=== PATIENT | male | born 1955 | race Caucasian/White ===

== ENCOUNTER 2021-10-06 06:25 | Day surgery (SDC) | payer OTHER ==
[2021-09-30 15:01] LABS: Absolute Lymphocytes (CBC) 2.1 K/uL (0.7-4.9); Hematocrit 47.9 % (39.6-49.0); Lymphocytes % 24.3 % (15.3-44.8); MPV 7.6 fL (7.6-11.3); RBC Red Blood Cell Count 5.43 M/uL (4.33-5.43)
--- NOTE | 2021-09-30 15:17 | RAD REPORT ---
EXAM DESCRIPTION: Remigio Sigala (2 Views)09/30/2021 3:00 pm CLINICAL HISTORY: Preop for hernia repair COMPARISON: 2016 FINDINGS: The lungs appear clear of acute infiltrate. The heart is normal size IMPRESSION: No acute abnormalities displayed
[2021-09-30 15:21] LABS: Potassium 4.6 mmol/L (3.5-5.1)
[2021-10-06] MEDS ORDERED: CEFAZOLIN/NS 1gm 1 GM/50 ML BAG ONE (06:42)
[2021-10-06] MEDS ORDERED: NA CHLORIDE 0.9% 1,000 ML ONE ×2 (06:42→09:56)
[2021-10-06] MEDS ORDERED: BUPIVACAINE 0.5% Inj,MDV 50 mL VIAL ONE (07:08)
[2021-10-06] MEDS ORDERED: propofoL 200 MG/20 ML VIAL IV ONE (07:14)
[2021-10-06] MEDS ORDERED: FENTANYL CITR 100 MCG/2 ML ONE ×2 (07:15→07:56)
[2021-10-06] MEDS ORDERED: LIDOCAINE 2% MPF 5 ML VIAL ONE (07:16)
[2021-10-06] MEDS ORDERED: MIDAZOLAM HCL 2 MG/2 ML INJ ONE (07:16)
[2021-10-06] MEDS ORDERED: ROCURONIUM 50 MG/5 ML VIAL IV ONE (07:19)
[2021-10-06] MEDS ORDERED: ONDANSETRON 4 MG/2 ML VIAL ONE (07:19)
[2021-10-06] MEDS ORDERED: GLYCOPYRROLATE 0.2 MG/ML SYR ONE (07:20)
[2021-10-06] MEDS ORDERED: NEOSTIGMINE 1 MG/ML -5 ML ONE (07:20)
[2021-10-06] MEDS ORDERED: SUCCINYLCHOLINE 20 MG/ML (10 ML) IV ONE (07:30)
[2021-10-06] MEDS: HYDROMORPHONE HCL 1 MG/ML INJ ONE ×2 (09:59→10:04)
[2021-10-06 10:12] VITALS: O2SAT 95
[2021-10-06] MEDS ORDERED: TAMSULOSIN 0.4 MG SR CAP ONE (10:57)
[2021-10-06] MEDS ORDERED: HYDROCODONE/APAP 5/325 MG TAB ONE (10:57)
[2021-10-06 11:15] VITALS: BP 153/73; TEMP 97.4
--- NOTE | 2021-10-26 16:17 | DS ---
Date of Discharge: 10/06/2021 Diagnosis: Incarcerated umbilical and inguinal hernias. Procedure: Open repair of incarcerated inguinal right side, also left-sided inguinal with mesh and t hen repair of also of incarcerated umbilical hernia. Disposition: Home. Activity: As tolerated. No heavy lifting. Plan: Follow up in my office in 1 week. Call for appointment at [phone]. Keep area dry for 48 trudy rs, then may shower. Medications: See orders. PATTI/ALIE Voice ID: [id number] Report ID: [id number]
--- NOTE | 2021-10-27 13:00 | OP ---
Date of Procedure: 10/26/2021 Surgeon: Narayan Lane MD Can Carrier: Connie Mancilla. Preoperative Diagnosis: Incarcerated bilateral inguinal and umbilical hernia. Postoperative Diagnosis: Incarcerated bilateral inguinal and umbilical hernia. Procedures: 1.Open repair of incarcerated right inguinal hernia with mesh. 2.Open repair of incarcerated left inguinal hernia with mesh. 3.Open repair of incarcerated umbilical hernia. Anesthesia: General plus local. Complications: None. Implant: Mesh, plug and sheath on the right and left side. Indication: This is the case of a male, who comes to us with tender bilateral inguinal hernias incar cerated and also umbilical hernia. The benefits, alternatives, and risks were fully explained of lap aroscopic versus open repair of inguinal hernia with mesh, which include, but not limited to infectio n, bleeding, damage to adjacent structures, anesthesia complication, chronic pain, numbness, recurren ce, NH, and even . He also understands this may not relieve any symptoms. He might need more t dong one surgical intervention. He was explained also the plan to use mesh over the inguinal regions at least. Pros and cons of mesh placement were discussed with the patient. All the questions were a nswered to his satisfaction. He did consent for the use of mesh. Procedure In Detail: The patient was brought to the operating room, placed in supine position. Anes thesia was done without complication. A time-out was called. Anesthesia was induced without complic ation. Our initial approach was done laparoscopically with an incision in the infraumbilical region and the anterior rectus sheath to trying to see we can access to the anterior rectus sheath, but the area is so large and some complex that we cannot achieve good visualization and good dissection of th e area to continue laparoscopically. Apparently, in this case due to these obvious findings, we turn ed into the open case, which I believe at this moment will be safer in this case due to the incarcera tion of tissue there. At that moment, after obtaining instrument count correct, we proceeded to make a right inguinal incision. Incision was carried down to Bharati fascia, which was opened under direc t vision. Internal oblique aponeurosis was identified and opened in direction of the fibers to conne ct the superficial inguinal ring. After that, ilioinguinal nerve and iliohypogastric nerve were iden tified, protected behind external oblique aponeurosis. The spermatic cord was then closed with a Pen laron making sure the structures were protected at all times. A lipoma of the cord was carefully iden tified and ligated from the cord structures. Small hernia sac was imbricated in the deep inguinal ri ng. The lipoma of the cord was ligated under direct visualization with chromic. Mesh and plug were placed over this deep inguinal ring after the imbrication of the hernia sac was done and secured in p lace with VersaTack. Mesh and sheet were placed in the floor of the canal securing that to the pubic tubercle, shelving edge of inguinal ligament, transversalis fascia, and the tails of the loop around the spermatic cord without strangulation. The area was irrigated, no bleeding. The ilioinguinal ne rve and iliohypogastric nerve were brought back into the working space. The superficial inguinal rin g was then approximated and then the external oblique aponeurosis was approximated making sure the ne rves were not included. The area was irrigated. Bharati fascia was closed with a chromic and the ski n was approximated with abhilash. Sponge count and instrument counts correct. At that moment, we pro ceeded then to go to the opposite side. Once again, incision was made in the inguinal canal. The in cision was carried down to Bharati fascia. External oblique aponeurosis was dissected in the directio n of its fibers to connect to the superficial inguinal ring. Once again, we identified the ilioingui nal nerve and iliohypogastric nerve, protected behind external oblique aponeurosis. A Teresita was pl aced around the spermatic cord. We noticed also once again the same findings with lipoma of the cord getting present. The hernia sac was carefully identified, showed incarceration of the fatty tissue, but reduced. Hernia sac was then imbricated with the help of the Prolene and then also a mesh and p lug were placed in that area and secured in place with VersaTack. The area was irrigated. No bleedi ng. Mesh and sheet were placed on the floor of the canal securing that to the pubic tubercle, shelvi ng edge of inguinal ligament, transversalis fascia and the tails looped around the spermatic cord wit hout strangulation. The area was visualized once again, no bleeding. At that moment, I proceeded to bring the ilioinguinal nerve and iliohypogastric nerve back into the inguinal canal, reconstructed t he superficial inguinal ring and closed the external oblique aponeurosis making sure the nerves were not included. The area was irrigated. Bharati fascia was closed with 3-0 chromic and the skin with s taples. Sponge count and instrument counts correct. At that moment, we went into the umbilical ruba on. We have a previous incision in that area. That incision was also used to help repair the umbili patria region. The umbilical skin was from the umbilical sac. We opened the hernia sac, foun d to have incarcerated omentum. After removing some adhesions from the sac, we were able to best lala luate the omentum and looked viable, so we preserved that and reduced back into the abdominal cavity. Area was irrigated. Then, after that, we removed the hernia sac and cleaned the fascial edges. We noticed this to approximate without resistance and no need for mesh at this moment. So, we proceede d to close the area with #1 sutures. The area was irrigated. The subcutaneous tissue was closed wit h 3-0 chromic and skin approximated. Sponge count and instrument counts correct. The patient tolera pao the procedure well. The patient was sent to recovery in stable condition. PATTI/ALIE Voice ID: [id number] Report ID: [id number]
== END 2021-10-06 13:07 | disposition home or self-care (01) ==
LOC: OR 06:25
PROVIDERS: ATTEND Surgery
PROC: 0YUA0JZ Supplement Bilateral Inguinal Region with Synthetic Substitute, Open Approach (ICD-10-PCS; principal; 2021-10-06 07:30)
PROC: 0WQF0ZZ Repair Abdominal Wall, Open Approach (ICD-10-PCS; 2021-10-06 07:30)
DX: K40.00 Bilateral inguinal hernia, with obstruction, without gangrene, not specified as recurrent (principal); K42.9 Umbilical hernia without obstruction or gangrene; Z20.822 Contact with and (suspected) exposure to COVID-19
CPT/HCPCS: 93005; 85025; 80048; 36415; 82947 ×2; 88302 ×2; 71046; 49507; 49587; U0002; J2704; J0330; J2250; J3010 ×2; J1170; J2710; J0690; J7030 ×2; J2405; 88304

== ENCOUNTER 2021-10-07 14:59 | Emergency (ER) | payer OTHER ==
--- OUTSIDE RECORDS SUMMARY | 2021-10-07 15:03 | XMS REPORT | Continuity of Care Document ---
:1955 Author Organization [facility] t Address [address] [place] [address] Care Team Providers Name Role Phone Pcp, Does Not Have A Primary Care Physician SAULO HASSAN Attending Clinician Unavailable Nurse, Pob Immunization Attending Clinician Unavailable Saulo Hassan DO Attending Clinician Josh Cabrera DO Attending Clinician Doctor Unassigned, Name Attending Clinician Unavailable Larry PEARCE Attending Clinician Unavailable Payers Payer Name Policy Type Policy Number Effective Date Expiration Date [facility] [id number] 2020 [facility] 00:00:00 PPO Problems Condition Condition Condition Status Onset Resolution Last Treating Co mments Source Name Details Category Date Date Treatment Clinician Date S/P ankle S/P ankle Disease Active Uni vers fusion fusion 3-30 ity of 00:00: [address] Wound Wound Disease Active 2016-10 Univers infection infection 1-22 [place] Medical hardware, hardware, Bran ch initial initial encounter encounter 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 infection - ity of 00:00: [address] Chronic Chronic Disease Active 2016-10 Univers osteomyeli osteomyeli - it y of tis of tis of 00:00: [place] ankle and ankle and 00 Medi patria foot, foot, Branch right right Osteomyeli Osteomyeli Disease Active 2016-10 U nivers tis of tis of 1-15 ity of ankle ankle 00:00: [place] 00 Medical Branch Cellulitis Cellulitis Disease Active 2016-10 U nivers 1-14 ity of 00:00: [place] 00 Medical Branch Obesity Obesity Disease Active 2016-10 Univers (BMI (BMI 1-14 ity of 30-39.9) 30-39.9) 00:00: [place] 00 Medical Branch Allergies, Adverse Reactions, Alerts Allergy Allergy Status Severity Reaction(s) Onset Inactive Treating Comm ents Source Name Type Date Date Clinician ADHESIVE Drug Active ITCHING Univers Class 3-22 ity of 00:00: [place] 00 Medical Branch Adhesive Propensi Active Rash Paper Univer s ty to 3-22 tape ok ity of adverse 00:00: [place] reaction 00 Medical s Branch BEE DRUG Active Anaphylaxis 2016-10 Unive rs STING / INGREDI 1-15 ity of VENOM 00:00: [place] 00 Medical Branch Bee Propensi Active Anaphylaxis 2016-10 Uni vers Sting / ty to 1-15 ity of Venom adverse 00:00: [place] reaction 00 Medical s Branch SULFAMET DRUG Active High Swelling 2014-10 Univer s HOXAZOLE INGREDI 0-06 ity of 00:00: [place] 00 Medical Branch Sulfamet Propensi Active Swelling 2014-10 bactrim Uni vers hoxazole ty to 0-06 ity of adverse 00:00: [place] reaction 00 Medical s Branch Social History Social Habit Start Date Stop Date Quantity Comments Source History [facility] o f Alcohol Frequency [facility] [place] [facility] Branch History [facility] University o f Alcohol Std Drinks [place] [facility] History [facility] o f Alcohol Binge [place] [facility] Branch History of tobacco Cigarette Smoker University of use [facility] Exposure to Yes University of SARS-CoV-2 (event) [facility] Alcohol intake 2021-05-10 2021-05-10 Current drinker Unive rsity of 00:00:00 00:00:00 of alcohol [facility] (finding) Branch Cigarettes smoked 2017-08-16 2017-08-16 Univers ity of current (pack per 00:00:00 00:00:00 [facility]) - Reported Branch Cigarette 2017-08-16 2017-08-16 University of pack-years 00:00:00 00:00:00 [facility] Tobacco use and 2017-08-16 2017-08-16 Never used Universit y of exposure 00:00:00 00:00:00 [facility] Tobacco Comment 2017-08-16 2017-08-16 quit 30 years Univer sity of 00:00:00 00:00:00 ago [facility] Alcohol Comment 2017-08-16 2017-08-16 social Universit y of 00:00:00 00:00:00 [facility] Sex [birth year] Universit y of 00:00:00 00:00:00 [facility] Smoking Status Start Date Stop Date Source Former smoker 2017-08-16 00:00:00 2017-[facility] Medications Ordered Filled Start Stop Current Ordering Indication Dosage Frequency Signature Comments Components Source Medication Medication Date Date Medication? Clinician (SIG) Name Name NaCl 0.9% No 1000mL at 999 Uni vers (NS) bolus 05-10-09 mL/hr, ity of infusion 19:30: 21:21 1,000 mL, [place] 1,000 mL 00 :00 IV Medical Piggyback, [place] ONCE, 1 dose, 05/10/21 at 1430, STAT CETIRIZINE 2017-10 Yes Take by Uni vers HCL 1-07 mouth. ity of (CETIRIZINE 18:36: [place] ORAL) [address] [place] [address] CETIRIZINE 2017-10 Yes Take by Uni vers HCL 1-07 mouth. ity of (CETIRIZINE 18:36: [place] ORAL) [address] [place] [address] CETIRIZINE 2017-10 Yes Take by Uni vers HCL 1-07 mouth. ity of (CETIRIZINE 12:36: [place] ORAL) [address] [place] [address] levothyroxi Yes Univer s ne 25 mcg 9-04 ity of tablet 00:00: 00 [facility] levothyroxi Yes Univer s ne 25 mcg 9-04 ity of tablet 00:00: 00 [facility] levothyroxi Yes Univer s ne 25 mcg 9-04 ity of tablet 00:00: 00 [facility] lisinopril- Yes Univer s hydrochloro 2-25 ity of thiazide 00:00: 20-25 mg 00 Medical per tablet Branch lisinopril- Yes Univer s hydrochloro 2-25 ity of thiazide 00:00: 20-25 mg 00 Medical per tablet Branch lisinopril- Yes Univer s hydrochloro 2-25 ity of thiazide 00:00: 20-25 mg 00 Medical per tablet Branch meloxicam Yes Univers 7.5 mg 2-24 ity of tablet 00:00: Medical Branch meloxicam Yes Univers 7.5 mg 2-24 ity of tablet 00:00: [facility] meloxicam Yes Univers 7.5 mg 2-24 [facility]y [facility] 1[facility]50 mg 2-09 [facility] 1-5[facility]50 mg 2-09 ity [facility] Tab [facility] Univers 1-5-50 mg 2-09 ity of Tab 00:00: [facility] Branch methocarbam 2016-10 Yes 500mg Take 1 Uni vers ol 500 mg 1-28 tablet by ity o f tablet 00:00: mouth 3 00 (three) Medical times Branch daily as needed for Pain (scale 4-6) or Pain (scale 7-10) (muscle spasm). methocarbam 2016-10 Yes 500mg Take 1 Uni vers ol 500 mg 1-28 tablet by ity o f tablet 00:00: mouth 3 (three) Medical times Branch daily as needed for Pain (scale 4-6) or Pain (scale 7-10) (muscle spasm). methocarbam 2016-10 Yes 500mg Take 1 Uni vers ol 500 mg 1-28 tablet by ity o f tablet 00:00: mouth 3 00 (three) Medical times Branch daily as needed for Pain (scale 4-6) or Pain (scale 7-10) (muscle spasm). HYDROcodone 2016-10 Yes 1{tbl} Take 1 Un harshal -acetaminop 1-17 tablet by ity of hen 10-325 00:00: mouth [place] mg tablet 00 every 4 Medical (four) Branch hours as needed for Pain (scale 4-6) or Pain (scale 7-10). pantoprazol 2016-10 Yes 40mg Take 1 Univ ers e 40 mg EC 1-17 tablet by ity of tablet 00:00: mouth [place] 00 daily. Medical Branch HYDROcodone 2016-10 Yes 1{tbl} Take 1 Un harshal -acetaminop 1-17 tablet by ity of hen 10-325 00:00: mouth [place] mg tablet 00 every 4 Medical (four) Branch hours as needed for Pain (scale 4-6) or Pain (scale 7-10). pantoprazol 2016-10 Yes 40mg Take 1 Univ ers e 40 mg EC 1-17 tablet by ity of tablet 00:00: mouth [place] 00 daily. Medical Branch HYDROcodone 2016-10 Yes 1{tbl} Take 1 Un harshal -acetaminop 1-17 tablet by ity of hen 10-325 00:00: mouth [place] mg tablet 00 every 4 Medical (four) Branch hours as needed for Pain (scale 4-6) or Pain (scale 7-10). pantoprazol 2016-10 Yes 40mg Take 1 Univ ers e 40 mg EC 1-17 tablet by ity of tablet 00:00: mouth [place] 00 daily. Medical Branch metFORMIN 2016-10 Yes Univers 500 mg 24 1-02 ity of hr tablet 00:00: [facility] metFORMIN 2016-10 Yes Univers 500 mg 24 1-02 ity of hr tablet 00:00: [facility] metFORMIN 2016-10 Yes Univers 500 mg 24 1-02 ity of hr tablet 00:00: [facility] DULoxetine 2016-10 Yes Univers 60 mg 0-26 ity of capsule 00:00: [facility] DULoxetine 2016-10 Yes Univers 60 mg 0-26 ity of capsule 00:00: [facility] DULoxetine 2016-10 Yes Univers 60 mg 0-26 ity of capsule 00:00: [facility] Branch methocarbam 2016-10 Yes Univer s ol 500 mg 0-20 ity of tablet 00:00: [facility] methocarbam 2016-10 Yes Univer s ol 500 mg 0-20 ity of tablet 00:00: [facility] methocarbam 2016-10 Yes Univer s ol 500 mg 0-20 ity of tablet 00:00: Medical Branch gabapentin Yes Univers 600 mg 0-08 ity of tablet 00:00: Medical Branch gabapentin 2016- Yes Univers 600 mg 0-08 ity of tablet 00:00: [place] [facility] gabapentin 2016- Yes Univers 600 mg 0-08 ity of tablet 00:00: [place] [facility] fenofibrate 0 Yes Univer s 145 mg 8-21 ity of tablet 00:00: [place] [facility] fenofibrate 2016- Yes Univer s 145 mg 8-21 ity of tablet 00:00: [place] [facility] fenofibrate Yes Univer s 145 mg 8-21 ity of tablet 00:00: [place] [facility] Branch diphenhydrA 2014-10 Yes 25mg Take 1 Cap Univers MINE 0-06 by mouth ity of (BENADRYL) 00:00: every 6 [place] 25 mg 00 (six) Medical capsule hours as Branch needed for Itching or Allergies. diphenhydrA 2014-10 Yes 25mg Take 1 Cap Univers MINE 0-06 by mouth ity of (BENADRYL) 00:00: every 6 [place] 25 mg 00 (six) Medical capsule hours as Branch needed for Itching or Allergies. diphenhydrA 2014-10 Yes 25mg Take 1 Cap Univers MINE 0-06 by mouth ity of (BENADRYL) 00:00: every 6 [place] 25 mg 00 (six) Medical capsule hours as Branch needed for Itching or Allergies. Immunizations Ordered Filled Immunization Date Status Comments [facility] e Immunization Name Name SARS-COV-2 COVID-19 2021-09-10 Completed Unive rsity of PFIZER VACCINE 00:00:00 [facility] [place] [facility] SARS-COV-2 COVID-19 2020-12-14 Completed Unive rsity of PFIZER VACCINE 00:00:00 [facility] [place] [facility] SARS-COV-2 COVID-19 2020-12-14 Completed Unive rsity of PFIZER VACCINE 00:00:00 [facility] [place] [facility] SARS-COV-2 COVID-19 2020-12-14 Completed Unive rsity of PFIZER VACCINE 00:00:00 [facility] [place] [facility] SARS-COV-2 COVID-19 2020-11-23 Completed Unive rsity of PFIZER VACCINE 00:00:00 [facility] [place] [facility] SARS-COV-2 COVID-19 2020-11-23 Completed Unive rsity of PFIZER VACCINE 00:00:00 [facility] [place] [facility] SARS-COV-2 COVID-19 2020-11-23 Completed Unive rsity of PFIZER VACCINE 00:00:00 [facility] [place] [facility] Vital Signs Vital Name Observation Time Observation Value Comments Source Diastolic blood 2021-05-10 18:17:00 73 mm[Hg] Unive rsity of pressure [facility] Systolic blood 2021-05-10 18:17:00 140 mm[Hg] Univer sity of pressure [facility] Heart rate 2021-05-10 18:11:00 70 /min [facility] Body temperature 2021-05-10 18:11:00 36.83 [facility]vonne [facility] Respiratory rate 2021-05-10 18:11:00 18 /min [facility] Body weight 2021-05-10 18:11:00 123.832 kg [facility] BMI 2021-05-10 18:11:00 37.02 kg/m2 [facility] Oxygen saturation in 2021-05-10 18:11:00 98 /min [facility] Arterial blood by [facility] Pulse oximetry [place] Procedures Procedure Date / Time Performed Performing Clinician Candie argueta SARS-COV-2 COVID-19 2021-09-10 17:12:09 Doctor Unassigned, No Un [facility] [place] VACCINE,0.3ML,IM Name [facility] (PFIZER) XR CHEST 1 VW 2021-05-10 18:59:50 Laina Cabrera [facility] URINALYSIS 2021-05-10 18:43:00 Laina Cabrera [facility] TROPONIN I 2021-05-10 18:30:00 Laina Cabrera [facility] HEPATIC FUNCTION PANEL 2021-05-10 18:30:00 Laina Cabrera [facility] [place] ([id number]) [facility] (ALB,T.PRO,BILI T,BU/BC,ALT,AST,ALK PHOS) BASIC METABOLIC PANEL 2021-05-10 18:30:00 Laina Cabrera [facility] [place] (NA, K, CL, CO2, Medical Branch GLUCOSE, BUN, CREATININE, CA) CBC WITH DIFF 2021-05-10 18:30:00 [facility] LACTIC ACID WHOLE 2021-05-10 18:29:00 Laina Cabrera [facility] CONSENT/REFUSAL FOR 2021-05-10 17:54:50 Doctor Unassigned, No Un [facility] DIAGNOSIS AND Name [facility] TREATMENT Encounters Start End Encounter Admission Attending Care Care Encounter Source Date/Time Date/Time Type Type Clinicians Facility Department ID 2021-08-02 Emergency [facility] [id number] Univers 14:08:01 [facility] 2021-09-10 2021-09-10 Outpatient Maya HASSAN [facility] [id number] Univers 10:40:00 10:40:00 STEPHEN ray [facility] 2021-09-10 2021-09-10 Imm/Inj Nurse, Adc Pob Immunization [facility] [id number] Univers 10:30:53 10:31:02 [id number] [id number] Wa dical NAL [address] [facility] 2021-07-28 2021-07-28 ambulatory [facility] [id number] [facility] 2021-07-20 2021-07-20 Outpatient [facility] [id number] [facility] 2021-07-02 2021-07-02 Outpatient [facility] [id number] [facility] 2021-05-10 2021-05-10 [facility] [id number] Univers 13:35:00 16:28:00 Laian Mcqueen [id number] ity [facility] 4.2.7.2.686 [place] [id number] [address] 2021-05-10 2021-05-10 Orders Doctor JEVON [id number] Univers 00:00:00 00:00:00 Only Unassigned, ALEC 350.1.13.10 ity of [facility] 4.2.7.2.686 [place] [id number] [address] 2020-12-14 2020-12-14 [facility] [id number] Univers 09:10:00 09:10:00 [facility] [id number] [facility] 2020-12-14 2020-12-14 [facility] [id number] Univers 09:10:00 09:10:00 [facility] 2020-11-23 2020-11-23 Outpatient [facility] [id number] Univers 09:20:00 09:20:00 [id number] [facility] 2020-11-23 2020-11-23 [facility] [id number] Univers 09:20:00 09:20:00 [facility] Results Test Description Test Time Test Comments Results Result Sourc e Comments XR CHEST 1 VW No radiographic Unive rsity of 9 evidence of acute [facility] 20:37:17 cardiopulmonary Branch process. I, Oneida Gupta MD., have reviewed this study and agree with theabove report.EXAM: XR CHEST 1 VW COMPARISON: Chest radiograph dated 08/22/2017. HISTORY:65 years old, Male, ?syncope . FINDINGS: Lungs: Improved inspiration in comparison with the previous study. Mildbiapical pleural thickening, right greater than left. Persistent mildatelectasis or scarring the left lung base. Heart/Mediastinum: The cardiomediastinal silhouette remains borderline.Accounting for technique. Atherosclerotic calcification of the thoracicaorta. Bones and soft tissues: Cervical fixation hardware. [facility], Radiant Results Inft User - 05/10/2021 4:03 PM CDT EXAM: XR CHEST 1 VWCOMPARISON: Chest radiograph dated 08/22/2017.HISTORY:65 years old, Male, syncope .FINDINGS:Lungs: Improved inspiration in comparison with the previous study. Mildbiapical pleural thickening, right greater than left. Persistent mildatelectasis or scarring the left lung base.Heart/Mediastinu m: The cardiomediastinal silhouette remains borderline.Accounting for technique. Atherosclerotic calcification of the thoracicaorta.Bones and soft tissues: Cervical fixation hardware.IMPRESSIONNo radiographic evidence of acute cardiopulmonary process.IOneida MD., have reviewed this study and agree with theabove report. TROPONIN I 2021-05-10 19:13:01 Test Item Value Reference Range Interpretation Comme nts TROPONIN I (test code = 0.002 ng/mL See_Comment [Au tomated message] The 7108213346) system which ge nerated this result tra nsmitted reference range : <=0.034. The reference r ronna was not used to int erpret this result as normal/abnormal . RHYS (test code = RHYS) Reference (Normal) Range (defined by the 99th percentile reference limit): <= 0.034 ng/mL Note: Cardiac troponin begins to rise 3-4 hours after the onset of ischemia. Repeat in 4-6 hours if the sample was drawn within 3-4 hours of the onset of the symptom and found normal. Diagnosis of myocardial injury is made with acute changes in cTn concentrations with at least one serial sample above the 99th percentile upper reference limit (URL), taken together with the patient's clinical presentation. Biotin has been reported to cause a negative bias, interpret results relative to patient's use of biotin. Lab Interpretation Normal (test code = 21359-8) [facility] [place] [facility] 19:08:16 Test Item Value Reference Range Interpretation Comments APPEARANCE (test code = Clear Clear 1365354203) COLOR (test code = Yellow Yellow 7348627651) PH (test code = 4.8-8.0 3012054091) SP GRAVITY (test code = 1.003-1.030 5432801058) GLU U QUAL (test code = Normal Normal 4572313515) BLOOD (test code = Negative Negative 5136367767) KETONES (test code = Negative Negative 2539805790) PROTEIN (test code = Negative Negative 2887-8) UROBILIN (test code = Normal Normal 5287923892) BILIRUBIN (test code = Negative Negative 9823845292) NITRITE (test code = Negative Negative 1354408639) LEUK LUMA (test code = Negative Negative 0263817289) RBC/HPF (test code = <1 See_Comment [Autom ated message] 7528409168) The system [employer] generated this result transmitted ref erence range: 0 - 3 HP F. The reference range was not used to int erpret this result as normal/abnormal . WBC/HPF (test code = See_Comment [Autom ated message] 0525506630) The system [employer] generated this result transmitted ref erence range: 0 - 5 HP F. The reference range was not used to int erpret this result as normal/abnormal . BACTERIA (test code = Negative Negative 4594422203) Lab Interpretation (test Normal code = 38892-8) [facility] METABOLIC PANEL (NA, K, CL, CO2, GLUCOSE, BUN, CREATININE, CA)2021-05-10 19:02:35 Test Item Value Reference Range Interpretation Comments NA (test code = 135 mmol/L 135-145 1885692448) K (test code = 4.1 mmol/L 3.5-5.0 9532811230) CL (test code = 97 mmol/L 98-108 L 5114552351) CO2 TOTAL (test code = 27 mmol/L 23-31 0492780288) AGAP (test code = 2-16 4123565785) BUN (test code = 27 mg/dL 7-23 H 6006092638) GLUCOSE (test code = 112 mg/dL 70-110 H 5802189550) CREATININE (test code = 1.40 mg/dL 0.60-1.25 H 0447065540) CALCIUM (test code = 10.3 mg/dL 8.6-10.6 8849421485) eGFR (test code = mL/min/1.73m2 9116426283) RHYS (test code = RHYS) Association of Glomerular Filtration Rate (GFR) and Staging of Kidney Disease* + --+ --+ ------+| GFR (mL/min/1.73 m2) ?| With Kidney Damage ?| ?Without Kidney Damage+ --------+ --------+ +| ?>90 ?| ?Stage one ?| ? Normal ?+ ---+ ---+ -------+| ?60-89 ?| ?Stage two ?| ? Decreased GFR ? + --+ --+ ------+| ?30-59 ?| ?Stage three ?| ? Stage three ? + --+ --+ ------+| ?15-29 ?| ?Stage four ? | ? Stage four ?+ ---+ ---+ -------+| ?<15 (or dialysis) ? ?| ?Stage five ? | ? Stage five ?+ ---+ ---+ -------+ *Each stage assumes the associated GFR level has been in effect for at least three months. ?Stages 1 to 5, with or without kidney disease, indicate chronic kidney disease. Notes: Determination of stages one and two (with eGFR >59mL/min/1.73 m2) requires estimation of kidney damage for at least three months as defined by structural or functional abnormalities of the kidney, manifested by either:Pathological abnormalities or Markers of kidney damage (including abnormalities in the composition of the blood or urine or abnormalities in imaging tests). Lab Interpretation Abnormal (test code = 82824-5) [facility] [place] [facility] ([address]) (ALB,T.PRO,BILI T,BU/BC,ALT,AST,ALK PHOS)2021-05-10 19:02:35 Test Item Value Reference Range Interpretation Comments TOTAL BILI (test code = 5082541415) 0.6 mg/dL 0.1-1.1 BILI UNCON (test code = 9694931113) 0.2 mg/dL 0.1-1.1 BILI CONJ (test code = 1607423690) 0.0 mg/dL 0.0-0.3 T PROTEIN (test code = 2918682710) 7.9 g/dL 6.3-8.2 ALBUMIN (test code = 3133109548) 4.6 g/dL 3.5-5.0 ALK PHOS (test code = 4677378964) 52 U/L 34-122 ALTv (test code = 1742-6) 23 U/L 5-50 AST(SGOT) (test code = 9243888397) 25 U/L 13-40 Lab Interpretation (test code = Normal 08768-1) [facility] WITH [id number] 18:53:33 Test Item Value Reference Range Interpretation Comments WBC (test code = See_Comment H [Automated 6690-2) message] The sy stem which generated this result transmitted reference range : 4.20 - 10.70 10*3/?L. The reference range was not used to interpret this result as normal/abnormal . RBC (test code = See_Comment [Automated 789-8) message] The sy stem which generated this result transmitted reference range : 4.26 - 5.52 10*6/?L. The reference range was not used to interpret this result as normal/abnormal . HGB (test code = 14.8 g/dL 12.2-16.4 718-7) HCT (test code = 45.1 % 38.4-49.3 4544-3) MCV (test code = 89.0 fL 81.7-95.6 787-2) MCH (test code = 29.2 pg 26.1-32.7 785-6) MCHC (test code = 32.8 g/dL 31.2-35.0 786-4) RDW-SD (test code = 42.7 fL 38.5-51.6 11663-8) RDW-CV (test code = 13.2 % 12.1-15.4 788-0) PLT (test code = See_Comment H [Automated 777-3) message] The sy stem which generated this result transmitted reference range : 150 - 328 10*3/ ?L. The reference r ronna was not used to interpret this result as normal/abnormal . MPV (test code = 9.6 fL 9.8-13.0 L 13832-8) NRBC/100 WBC (test See_Comment [Automat ed code = 8239557594) message] The system which generated this result transmitted reference range : 0.0 - 10.0 /100 WBCs. The refer ence range was not u sed to interpret th is result as normal/abnormal . NRBC x10^3 (test code <0.01 See_Comment [Auto mated = 2288585049) message] The s ystem which generated this result transmitted reference range : 10*3/?L. The reference range was not used to interpret this result as normal/abnormal . GRAN MAT (NEUT) % 70.3 % (test code = 770-8) IMM GRAN % (test code 0.40 % = 9518366399) LYMPH % (test code = 20.6 % 736-9) MONO % (test code = 6.3 % 5905-5) EOS % (test code = 1.6 % 713-8) BASO % (test code = 0.8 % 706-2) GRAN MAT x10^3(ANC) 7.62 10*3/uL 1.99-6.95 H (test code = 1162780380) IMM GRAN x10^3 (test 0.04 10*3/uL 0.00-0.06 code = 6767022869) LYMPH x10^3 (test code 2.23 10*3/uL 1.09-3.23 = 731-0) MONO x10^3 (test code 0.68 10*3/uL 0.36-1.02 = 742-7) EOS x10^3 (test code = 0.17 10*3/uL 0.06-0.53 711-2) BASO x10^3 (test code 0.09 10*3/uL 0.01-0.09 = 704-7) Lab Interpretation Abnormal (test code = 25435-8) [facility] [place] [facility] Whole [id number] 18:39:18 Test Item Value Reference Range Interpretation Comments LACTIC ACID (test code = 1.94 mmol/L 0.50-2.20 7190813223) Lab Interpretation (test code = Normal 60173-4) [facility]"
[2021-10-07] MEDS ORDERED: HYDROCODONE/APAP 10/325 TAB ONE (17:57)
[2021-10-07 18:04] LABS: Urine Blood Negative (Negative); Urine Glucose Negative (Negative); Urine Protein Negative (Negative); Urine Specific Gravity >=1.030 (1.005-1.030)
[2021-10-07 18:21] LABS: Urine Bacteria <20 /HPF (NONE SEEN); Urine Mucus LIGHT /HPF (NONE SEEN); Urine RBC NONE SEEN /HPF (NONE SEEN)
--- NOTE | 2021-10-07 18:36 | EDPHYS ---
Physician Documentation [facility] Name: Philippe Hernandez Age: 66 yrs Sex: Male : 1955 Arrival Date: 10/07/2021 Time: 15:01 Bed 18 Private MD: ED Physician Duke Laird HPI: 10/07 17:34 This 66 yrs old Male presents to ER via Ambulatory with complaints of Post Surgical cp Pain. 17:34 The patient presents with urinary symptoms, unable to void. Onset: The symptoms/episode cp began/occurred last night. Associated signs and symptoms: Pertinent positives: abdominal pain, constipation, Pertinent negatives: diarrhea, fever, vomiting. Severity of symptoms: in the emergency department the symptoms are unchanged, despite home interventions. 17:35 Patient reports history of repair of multiple hernias yesterday by DR Lane. cp Historical: - Allergies: 15:23 Bactrim; vg1 15:23 Bees; vg1 - PMHx: 15:23 Nerve Damage; Arthritis; Hypertensive disorder; Diabetes mellitus; Hypercholesterolemia;vg1 - PSHx: 15:23 Hernia Repair; Appendectomy; vg1 - Immunization history:: Client reports receiving the 2nd dose of the Covid vaccine. - Social history:: Smoking status: Patient denies any tobacco usage or history of. ROS: 17:40 Abdomen/GI: Positive for abdominal pain, constipation. cp 17:40 Eyes: Negative for injury, pain, redness, and discharge. cp 17:40 Constitutional: Negative for body aches, chills, fever, poor PO intake. 17:40 Cardiovascular: Negative for chest pain, palpitations. 17:40 Respiratory: Negative for cough, shortness of breath, wheezing. 17:40 : Positive for difficulty urinating. Exam: 17:45 Constitutional: The patient appears in no acute distress, alert, awake, cp non-diaphoretic, non-toxic, well developed, well nourished, obese, uncomfortable. 17:45 Head/Face: Normocephalic, atraumatic. cp 17:45 Eyes: Periorbital structures: appear normal, Conjunctiva: normal, no exudate, no injection, Sclera: no appreciated abnormality, Lids and lashes: appear normal, bilaterally. 17:45 ENT: External ear(s): are unremarkable, Nose: is normal, Mouth: Lips: moist, Oral mucosa: moist, Posterior pharynx: Airway: no evidence of obstruction, patent. 17:45 Chest/axilla: Inspection: normal. 17:45 Cardiovascular: Rate: normal, Edema: ankle edema, that is very mild, JVD: is not appreciated. 17:45 Respiratory: the patient does not display signs of respiratory distress, Respirations: normal, no use of accessory muscles, labored breathing, is not present, Breath sounds: are clear throughout, no decreased breath sounds, no stridor, no wheezing. 17:45 Abdomen/GI: Inspection: distension, that is mild, Bowel sounds: active, all quadrants, Palpation: soft, in all quadrants, moderate abdominal tenderness, in the right lower quadrant and left lower quadrant, rebound tenderness, is not appreciated, voluntary guarding, is elicited in the right lower quadrant and left lower quadrant. 17:45 Skin: cellulitis, is not appreciated, no rash present. 17:45 Neuro: Orientation: to person, place \T\ time. Mentation: is normal, Motor: moves all fours, strength is normal, Sensation: is normal. Vital Signs: 15:21 BP 102 / 66; Pulse 99; Resp 22; Temp 98.3(O); Pulse Ox 93% ; Weight 124.74 kg; Height 6 vg1 ft. 0 in. (182.88 cm); Pain 8/10; 17:30 BP 124 / 64; Pulse 94; Resp 17 S; Pulse Ox 100% on R/A; jg9 18:15 BP 110 / 56; Pulse 93; Resp 18 S; Pulse Ox 95% on R/A; jg9 15:21 Body Mass Index 37.30 (124.74 kg, 182.88 cm) vg1 MDM: 17:34 Patient medically screened. cp 18:30 Differential diagnosis: UTI, urinary retention, bowel obstruction, constipation. cp 18:31 Physician consultation: Narayan Lane MD was called at 18:31, was contacted at 18:31, regarding patient's condition, and will see patient in office, tomorrow. 18:35 Data reviewed: vital signs, nurses notes, lab test result(s), urinalysis. cp 18:35 Counseling: I had a detailed discussion with the patient and/or guardian regarding: the cp historical points, exam findings, and any diagnostic results supporting the discharge/admit diagnosis, lab results, the need for outpatient follow up, a general surgeon, to return to the emergency department if symptoms worsen or persist or if there are any questions or concerns that arise at home. Response to treatment: the patient's symptoms have markedly improved after treatment, schultz placed by nursing staff. Patient reports pain markedly improved. Will discharge to home for continued monitoring. 10/07 17:34 Order name: Urine Microscopic Only; Complete Time: 18:25 cp 10/07 18:04 Order name: Urine Dipstick-Ancillary; Complete Time: 18:25 EDMS 10/07 17:34 Order name: Bladder Scanner: pre and post void cp 10/07 17:34 Order name: Schultz; Complete Time: 17:48 cp 10/07 17:34 Order name: Urine Dipstick-Ancillary (obtain specimen); Complete Time: 18:06 cp Administered Medications: 17:57 Drug: HYDROcodone-acetaminophen 10 mg-325 mg 1 tabs Route: PO; jg9 Disposition Summary: 10/07/21 18:36 Discharge Ordered Location: Home cp Problem: new cp Symptoms: have improved cp Condition: Stable cp Diagnosis - Retention of urine, unspecified cp Followup: cp - With: Narayan Lane MD - When: Tomorrow - Reason: Recheck today's complaints Discharge Instructions: - Discharge Summary Sheet cp - Acute Urinary Retention, Male cp Forms: - Medication Reconciliation Form cp - Thank You Letter cp - Antibiotic Education cp - Prescription Opioid Use cp Signatures: Dispatcher [employer] EDAR Landon Borges PA PA cp Shakira To RN RN vg1 Molly Urbina jg9 Corrections: (The following items were deleted from the chart) 15:24 15:23 Allergies: No Known Allergies; vg1 vg1
--- NOTE | 2021-10-07 18:36 | ER ---
Nurse's Notes [facility] [place] Name: Philippe Hernandez Age: 66 yrs Sex: Male : 1955 Arrival Date: 10/07/2021 Time: 15:01 Bed 18 Private MD: Diagnosis: Retention of urine, unspecified Presentation: 10/07 15:21 Chief complaint: Patient states: Had hernia repair x3 yesterday by Dr Lane; took vg1 Hydrocodone before coming to ED; states was able to urinate last night around 2200 but has not urinated today. Stated has had 4 cups of coffee and 'two big mugs of water'. Coronavirus screen: Vaccine status: Patient reports receiving the 2nd dose of the covid vaccine. Client denies travel out of the [place] in the last 14 days. Ebola Screen: Patient negative for fever greater than or equal to 101.5 degrees Fahrenheit, and additional compatible Ebola Virus Disease symptoms. Initial Sepsis Screen: Does the patient meet any 2 criteria? RR > 20 per min. Does the patient have a suspected source of infection? No. Patient's initial sepsis screen is negative. Risk Assessment: Do you want to hurt yourself or someone else? Patient reports no desire to harm self or others. Onset of symptoms was October 07, 2021. 15:21 Method Of Arrival: Ambulatory vg1 15:21 Acuity: MAGALI 3 vg1 Triage Assessment: 15:23 General: Appears in no apparent distress. uncomfortable, Behavior is calm, cooperative. vg1 Pain: Complains of pain in umbilical area, right lower quadrant and left lower quadrant Pain currently is 8 out of 10 on a pain scale. : Reports inability to void. Historical: - Allergies: 15:23 Bactrim; vg1 15:23 Bees; vg1 - PMHx: 15:23 Nerve Damage; Arthritis; Hypertensive disorder; Diabetes mellitus; Hypercholesterolemia;vg1 - PSHx: 15:23 Hernia Repair; Appendectomy; vg1 - Immunization history:: Client reports receiving the 2nd dose of the Covid vaccine. - Social history:: Smoking status: Patient denies any tobacco usage or history of. Screenin:50 Abuse screen: Denies threats or abuse. Denies injuries from another. Nutritional jg9 screening: No deficits noted. Tuberculosis screening: No symptoms or risk factors identified. Fall Risk None identified. Assessment: 17:49 Reassessment: Pre cath void with bladder scanner 415mL. jg9 18:21 Reassessment: Patient states feeling better. Patient states symptoms have improved. jg9 19:08 Reassessment: schultz bag emptied and switched to leg bag and secured with provided jg9 straps. Vital Signs: 15:21 BP 102 / 66; Pulse 99; Resp 22; Temp 98.3(O); Pulse Ox 93% ; Weight 124.74 kg; Height 6 vg1 ft. 0 in. (182.88 cm); Pain 8/10; 17:30 BP 124 / 64; Pulse 94; Resp 17 S; Pulse Ox 100% on R/A; jg9 18:15 BP 110 / 56; Pulse 93; Resp 18 S; Pulse Ox 95% on R/A; jg9 15:21 Body Mass Index 37.30 (124.74 kg, 182.88 cm) vg1 ED Course: 15:01 Patient arrived in ED. ds1 15:23 Triage completed. vg1 15:23 Arm band placed on. vg1 17:22 Molly Urbina is Primary Nurse. jg9 17:27 Landon Borges PA is PHCP. cp 17:27 Duke Laird MD is Attending Physician. cp 17:33 Bladder scan completed. 450 mL pre Schultz insertion measurement. jg9 17:34 Patient has correct armband on for positive identification. Placed in gown. Bed in low mh5 position. Call light in reach. Side rails up X 1. Warm blanket given. latin dancer on. Pulse ox on. NIBP on. 17:49 Schultz cath inserted, using sterile technique, 16 Fr., by id, balloon inflated, urine jg9 specimen collected. 18:19 Bladder scan completed. 10 mL post Schultz cath insertion residual. Bladder scan jg9 completed. 18:[address] MD is Referral Physician. cp 19:07 No provider procedures requiring assistance completed. jg9 19:08 Patient did not have IV access during this emergency room visit. jg9 Administered Medications: 17:57 Drug: HYDROcodone-acetaminophen 10 mg-325 mg 1 tabs Route: PO; jg9 Outcome: 18:36 Discharge ordered by . cp 19:07 Discharged to home ambulatory, with significant other. jg9 19:07 Condition: stable 19:07 Discharge instructions given to patient, Instructed on discharge instructions, follow up and referral plans. Demonstrated understanding of instructions, follow-up care. 19:09 Patient left the ED. jg9 Signatures: [place] ds1 Landon Borges PA PA cp Martinez, Lexii mh5 Shakira To, RN RN vg1 Molly Urbina jg9 Corrections: (The following items were deleted from the chart) 15:24 15:23 Allergies: No Known Allergies; vg1 vg1 15:27 15:21 Chief complaint: Patient states: Had hernia repair x3 yesterday by Dr Lane; vg1 states was able to urinate last night around 2200 but has not urinated today. Stated has had 4 cups of coffee and 'two big mugs of water'. vg1 18:21 17:33 Bladder scan completed. 450 mh5 jg9
[2021-10-07 19:35] VITALS: TEMP 98.3
[2021-10-07 19:39] VITALS: BP 110/56; O2SAT 95
== END 2021-10-07 19:09 | disposition home or self-care (01) ==
LOC: ER 14:59
DX: R33.9 Retention of urine, unspecified (principal); Z98.890 Other specified postprocedural states; I10 Essential (primary) hypertension; Z88.1 Allergy status to other antibiotic agents; Z91.030 Bee allergy status
CPT/HCPCS: 51702; 81003; 81015; 99284